=== PATIENT | female | born 1950 | race Asian ===

== ENCOUNTER → 2017-05-09 | Outpatient (CLI) | payer MEDICARE, OTHER ==
[~2017-05-09] MED LIST: AMLO-512 PO; ASPI325T PO; FOSI20TA3 PO; HYDROCHLOROTHIAZIDE; SIMV10TA6 PO
== END | disposition home or self-care (01) ==
LOC: RADPV 12:17
PROVIDERS: ATTEND Internal Medicine
DX: Z13.820 Encounter for screening for osteoporosis (principal); M85.88 Other specified disorders of bone density and structure, other site
CPT/HCPCS: 77080

== ENCOUNTER 2017-08-05 14:59 | Emergency (ER) | payer MEDICARE, OTHER ==
[~2017-08-05] VITALS: Ht 154.9 cm; Wt 68.2 kg
[~2017-08-05 14:59] MED LIST changes: +ASPI-1213 PO; -ASPI325T PO
[2017-08-05] MEDS ORDERED: HYDR25TA PO (15:14)
[2017-08-05] MEDS ORDERED: MethylPREDNISolone SOD SUCC 125 MG/2 ML VIAL IVP ONE (15:15)
[2017-08-05] MEDS ORDERED: DiphenhydrAMINE HCL 50 MG/ML VIAL IVP ONE (15:15)
[2017-08-05] MEDS ORDERED: FAMOTIDINE 10 MG/ML 2 ML VIAL IVP ONE (15:15)
[2017-08-05 17:35] VITALS: BP 151/83
== END 2017-08-05 17:58 | disposition home or self-care (01) ==
LOC: EMS 15:02
DX: L50.9 Urticaria, unspecified (principal); L29.9 Pruritus, unspecified; R07.89 Other chest pain; R06.02 Shortness of breath; E78.00 Pure hypercholesterolemia, unspecified; I10 Essential (primary) hypertension
CPT/HCPCS: 93005; 96374; 96375; 99285; J1200; J2930; J3490

== ENCOUNTER → 2018-10-03 | Outpatient (CLI) | payer MEDICARE, OTHER ==
[~2018-10-03] MED LIST changes: -FOSI20TA3 PO; +FOSI20TA97 PO; +HYDR25TA PO; -HYDROCHLOROTHIAZIDE
== END | disposition home or self-care (01) ==
LOC: RADPV 10:58
PROVIDERS: ATTEND Internal Medicine
DX: M19.011 Primary osteoarthritis, right shoulder (principal); M25.512 Pain in left shoulder